=== PATIENT | male | born 1975 | race Hispanic/Latino ===

== ENCOUNTER 2016-11-17 13:29 | Outpatient (CLI) | payer OTHER ==
[2016-11-17 14:20] LABS: Alanine Aminotransferase 33 units/L (7-56); Albumin 4.5 g/dL (3.9-5); Albumin/Globulin Ratio 1.3 %; Alkaline Phosphatase 44 units/L (35-129); Anion Gap 20 mmol/L; BUN/Creatinine Ratio 17.27; Blood Urea Nitrogen 19 mg/dL (9-20); Calcium 9.1 mg/dL (8.4-10.2); Carbon Dioxide 20 mmol/L (22-30); Chloride 101.8 mmol/L (98-107); Glucose 117 mg/dL (75-100); Potassium 3.9 mmol/L (3.6-5.0); Sodium 138 mmol/L (137-145); Total Protein 7.9 g/dL (6.3-8.2)
--- NOTE | 2016-11-17 14:51 | XRay Report ---
Chest 2 views: History: Bipolar disorder. Cirrhosis. Findings: Normal cardiomediastinal silhouette. Trachea is midline. No consolidation, pneumothorax or pleural effusion. Impression: No acute cardiopulmonary findings.
--- NOTE | 2016-11-17 14:53 | XRay Report ---
Lumbar spine 3 views: History: Back and leg pain. Findings: Normal height of vertebral bodies. Decrease in height of L2-3, L3-4 and L4-L5 interspace. Sclerotic adjacent articular surfaces with osteophyte suggestive of degenerative changes. No fracture. No soft tissue calcification. Impression: Degenerative lumbar spine.
== END 2016-11-17 13:30 | disposition home or self-care (01) ==
LOC: XRAY 13:29
PROVIDERS: ATTEND Internal Medicine
DX: M47.896 Other spondylosis, lumbar region (principal); F31.9 Bipolar disorder, unspecified; I51.9 Heart disease, unspecified; K74.60 Unspecified cirrhosis of liver; F17.200 Nicotine dependence, unspecified, uncomplicated
CPT/HCPCS: 36415; 71020; 72100; 80053